=== PATIENT | male | born 1965 | race Caucasian/White ===

== ENCOUNTER 2023-05-27 14:45 | Outpatient (AMB) | payer BC, SELFPAY ==
[2023-05-27 14:46] VITALS: BP 130/90; PULSE 87; O2SAT 97; BMI 27.1
--- NOTE | 2023-05-27 14:46 | A.OFFPC_ITS ---
Vital Signs 05/27/23 14:46 05/27/23 15:08 Height 5 ft 11 in Weight 194 lb BMI 27.1 BP 130/90 H 130/82 Blood Pressure Location Lt brachial Lt brachial Position Sitting Sitting Pulse 87 Pulse Source Pulse Oximeter Pulse Oximetry (%) 97 Oxygen Delivery Method Room Air Intake Visit Reasons: Annual PE Intake Note: Patient is here today for a physical. Patient Financial Advocate Required: No Allergies No Known Allergies Allergy (Verified 05/27/23 14:56) Medication List - Last Reconciled 05/27/23 by ISA Rivera atorvastatin 20 mg PO DAILY sildenafil (Viagra) 100 mg PO DAILY PRN Tobacco use date assessed: 05/27/23 Dental Screening Dental Screen Date: 05/27/23 Did you have a dental visit in the last 12 months?: Yes Did you have a dental problem in the last 6 months where you did not have access to dental care?: No Was dental information given to patient?: Patient has dentist HPI Annual PE HPI Details Patient is a 57-year-old male who presents today for physical exam. Patient of Dr. Long. Medical history significant for hypercholesterolemia, impaired glucose tolerance, erectile dysfunction-reports Viagra is not helping him as it used in the past. Also reports intermittent forgetfulness for the past 1 year, reports forgetting random things, reports sister had dementia and at age 57. Reports intermittent balance slightly off as well. Declined tetanus vaccine. Reports normal colonoscopy 2018 at [facility]. Reports he does not take atorvastatin anymore, will check lipid panel. Will call for eye exam. Due for blood work. [facility] Medical History Erectile dysfunction Impaired glucose tolerance Hypercholesterolemia Family History Mother Dementia Father Skin cancer Sister Skin cancer Social History Housing: House Alcohol intake: current Alcohol intake frequency: holidays/special occasions only Patient Tobacco Use Status: Never used Tobacco service: No Current occupational status: employed Cognitive needs: No Hearing needs: No Vision needs: No Questionnaire PHQ-9 Over the last 2 weeks, how often have you been bothered by any of the following problems? 1. Little interest or pleasure in doing things: not at all 2. Feeling down, depressed, or hopeless: not at all 3. Trouble falling or staying asleep, or sleeping too much: not at all 4. Feeling tired or having little energy: not at all 5. Poor appetite or overeating: not at all 6. Feeling bad about yourself - or that you are a failure or have let yourself or your family down: not at all 7. Trouble concentrating on things, such as reading the newspaper or watching television: not at all 8. Moving or speaking so slowly that other people could have noticed. Or the opposite - being so fidgety or restless that you have been moving around a lot more than usual: not at all 9. Thoughts that you would be better off or of hurting yourself in some way: not at all Total score: 0 Depression Screening Interpretation: Negative Depression Screening Done: Yes 49992 - PHQ-9 Billing: Yes Source: Developed by Drs. Gary Gonzalez, Liudmila Harris, Bay Sanderson and colleagues, with an educational gael from [employer]. Thrive Questionnaire Date Thrive assessed: 05/27/23 I am a: Patient What is your living situation today?: I have a steady place to live Within the past 12 months, did the food you bought not last and you didn't have the money to get more?: Never true Within the past 12 months, did you worry whether your food would run out before you got money to buy more?: Never true Do you have trouble paying for medicines?: No Do you have trouble getting transportation to medical appointments?: No Do you have trouble paying your heating and electricity bill?: No Do you have trouble taking care of your child, family member or friend?: No Do you have trouble with day-to-day activities such as bathing, preparing meals, shopping, managing finances, etc.?: No Are you currently unemployed and looking for a job?: No Are you interested in more education?: No Currently or been in a relationship where the following occur: no concerns reported AUDIT C Alcohol Use Questionnaire (AUDIT-C) 1. How often do you have a drink containing alcohol?: Never 3. How often do you have six or more drinks on one occasion?: Never Total Score: 0 Score Reviewed/Action Taken: No ESTEFANY-7 AMB Questionnaire ESTEFANY-7 Date ESTEFANY - 7 assessed: 05/27/23 Feeling nervous, anxious, or on edge: 0 = Not at all Not being able to stop or control worryin = Not at all Worrying too much about different things: 0 = Not at all Trouble relaxin = Not at all Being so restless that it is hard to sit still: 0 = Not at all Becoming easily annoyed or irritable: 0 = Not at all Feeling afraid as if something awful might happen: 0 = Not at all Total ESTEFANY-7 score (0-4 normal; 5-9 mild; 10-14 moderate; 15-21 severe): 0 Source: Developed by Drs. Gary Gonzalez, Liudmila Harris, Bay Sanderson and colleagues, with an educational gael from [employer]. ESTEFANY-7 Assessment Billing ESTEFANY-7 Assessment Tool: ESTEFANY-7 Assessment 45701 Review of Systems Const Reports as per HPI, Denies body aches, Denies chills, Denies fever(s) and Denies headache(s) Eyes Denies change in vision ENT Denies dizziness, Denies otalgia, Denies headache(s), Denies nasal discharge, Denies sinus pain and Denies sore throat Card Denies chest pain, Denies edema, Denies lightheadedness and Denies dyspnea Resp Denies cough, Denies dyspnea and Denies wheezing GI Denies abdominal pain, Denies constipation, Denies diarrhea, Denies nausea and Denies vomiting Reports as per HPI and Denies dysuria Musc Denies myalgias Skin/Breast Denies rash Neuro Denies dizziness and Denies headache(s) Aller/Immun Denies wheezing Physical exam (Primary Care) Vital Signs: Last Vital Signs BP 130/90 H 05/27/23 14:46 Oxygen Delivery Method Room Air 05/27/23 14:46 BMI result Body Mass Index 27.1 Tobacco/Smoking Status: Tobacco use Status Tobacco use date assessed 05/27/23 05/27/23 14:54 Patient Tobacco Use Status Never used Tobacco 05/27/23 14:54 PHQ-9: PHQ-9 Score PHQ-9: Total score 0 05/27/23 14:58 Depression Screening Interpretation: Negative Thrive Assessment: Date of Thrive Assessment Date Thrive assessed 05/27/23 05/27/23 14:54 Currently or been in a relationship where the following occur: no concerns reported Const General: cooperative and no acute distress Orientation/consciousness: patient oriented x3 HENMT Head: Yes normocephalic and Yes atraumatic Ears: TM's normal bilaterally Face and sinus: Yes sinuses nontender Mouth: oropharynx normal and moist mucous membranes Throat: Yes posterior oropharynx normal Eyes General: appearance normal, both eyes and all related structures Pupils: Equal, round and reactive pupils present EOM: EOMs intact bilaterally Neck Neck: Yes normal visual inspection, Yes full ROM and Yes no lymphadenopathy Thyroid: Thyroid normal Resp Effort & Inspection: normal respiratory effort and able to speak in complete sentences Auscultation: clear to auscultation bilaterally, no crackles, no rales, no rhonchi and no wheezes Cardio Rate: regular rate Rhythm: regular rhythm Heart sounds: S1 normal heart sound present, S2 normal heart sound present and no murmurs GI Palpation (GI): Soft to palpation, not firm, nontender, no guarding, not rigid and no hepatosplenomegaly Auscultation: normal bowel sounds General: No CVA tenderness Back/Spine/Pelvis Back: No CVA tenderness Skin General skin exam: no rashes or lesions noted Neuro General: patient oriented x3 Cranial nerves: Yes Equal, round and reactive pupils present Gait exam (Neuro): Normal gait present Extrem General: Yes full ROM and No edema Assessment and Plan Assessment & Plan (1) Forgetfulness: Code(s): R68.89 - Other general symptoms and signs Plan: Blood work ordered Neurology referral for an evaluation and treatment (2) Screening for prostate cancer: Code(s): Z12.5 - Encounter for screening for malignant neoplasm of prostate (3) Adult general medical exam: Code(s): Z00.00 - Encounter for general adult medical examination without abnormal findings Plan: Repeat in 1 year (4) Erectile dysfunction: Code(s): N52.9 - Male erectile dysfunction, unspecified Plan: Continue Viagra daily p.r.n. Urology referral for an evaluation and treatment (5) Impaired glucose tolerance: Code(s): R73.02 - Impaired glucose tolerance (oral) Plan: A1c ordered (6) Hypercholesterolemia: Code(s): E78.00 - Pure hypercholesterolemia, unspecified Plan: Lipid panel ordered Low-cholesterol diet Orders: Orders TSH reflex Free T4 Today Z00.00 - Encounter for general adult medical examination without abnormal findings Vitamin B12 and Folate Today Z00.00 - Encounter for general adult medical examination without abnormal findings Lipid Panel Today E78.00 - Pure hypercholesterolemia, unspecified Comprehensive [place]. Panel Fast Today Z00.00 - Encounter for general adult medical examination without abnormal findings Complete Blood Count Auto Diff Today Z00.00 - Encounter for general adult medical examination without abnormal findings Vitamin D 25-OH Total Today Z00.00 - Encounter for general adult medical examination without abnormal findings Hemoglobin A1c Today R73.02 - Impaired glucose tolerance (oral) Prostate Specific Antigen Today Z12.5 - Encounter for screening for malignant neoplasm of prostate Referrals Urology Referral N52.9 - Male erectile dysfunction, unspecified Neurology Referral R68.89 - Other general symptoms and signs Coding Level of Care Code Est Pt Prev Care 40-64y([id number]) Diagnoses Forgetfulness R68.89 Screening for prostate cancer Z12.5 Adult general medical exam Z00.00 Erectile dysfunction N52.9 Impaired glucose tolerance R73.02 Hypercholesterolemia E78.00 Additional Codes ESTEFANY-7 Assessment Billing - ESTEFANY-7 Assessment Tool: ESTEFANY-7 Assessment 47975 ([id number])
[2023-05-27 15:08] VITALS: BP 130/82
== END 2023-05-27 15:48 | disposition home or self-care (01) ==
PROVIDERS: PCP Internal Medicine; Visit Provider Internal Medicine
DX: R68.89 Other general symptoms and signs (principal); Z12.5 Encounter for screening for malignant neoplasm of prostate; Z00.00 Encounter for general adult medical examination without abnormal findings; N52.9 Male erectile dysfunction, unspecified; R73.02 Impaired glucose tolerance (oral); E78.00 Pure hypercholesterolemia, unspecified
CPT/HCPCS: 99396

== ENCOUNTER 2023-06-29 10:51 | Outpatient (REF) | payer BC, SELFPAY ==
[2023-06-29 11:16] LABS: MANUAL DIFF FLAG NO
[2023-06-29 11:46] LABS: Estimated Average Glucose 105 mg/dL; Hemoglobin A1c % 5.3 % (<6.0)
[2023-06-29 12:03] LABS: Basophils Absolute Auto 0.1 X10*3/uL (0.0-0.2); Basophils Percent Auto 1.2 % (0-2); Eosinophils Absolute Auto 0.1 X10*3/uL (0.0-0.4); Eosinophils Percent Auto 1.9 % (0-4); Hematocrit 45.8 % (42.0-52.0); Hemoglobin 15.3 g/dl (14.0-18.0); Imm Gran Abs Auto 0.02 X10*3/uL (0.00-0.03); Imm Gran Pct Auto 0.5 % (0.0-0.4); Lymphocytes Percent Auto 24.3 % (20-40); Mean Corpuscular HGB Conc 33.4 g/dl (31.0-36.0); Mean Corpuscular Hemoglobin 29.9 pg (27.0-33.0); Mean Corpuscular Volume 89.5 fL (80.0-98.0); Mean Platelet Volume 9.8 fL (9.4-12.4); Monocytes Absolute Auto 0.4 X10*3/uL (0.1-1.2); Monocytes Percent Auto 8.8 % (2-11); Neutrophils Absolute Auto 2.7 x10*3/uL (2.0-8.3); Neutrophils Percent Auto 63.3 % (45-73); Platelet Count 144 X10*3/uL (160-400); Red Blood Count 5.12 X10*6/uL (4.60-5.80); Red Cell Distribution Width 12.6 % (11.0-16.0); White Blood Count 4.2 X10*3/uL (4.8-10.8)
[2023-06-29 12:12] LABS: Alanine Aminotransferase 28 U/L (0-40); Albumin Level 4.2 g/dL (3.5-5.0); Alkaline Phosphatase 74 U/L (39-117); Anion Gap 10 (12-20); Aspartate Amino Transferase 26 U/L (5-37); Bilirubin Total 0.5 mg/dL (0.0-1.0); Blood Urea Nitrogen 9 mg/dL (9-16); Calcium 9.9 mg/dL (8.4-10.2); Carbon Dioxide 31 mmol/L (22-29); Chloride 103 mmol/L (96-108); Cholesterol 175 mg/dL (<200); Estimated Glomerular Filt Rate > 60; Glucose Fasting 101 mg/dL (60-99); HDL Cholesterol 35 mg/dL (>40); LDL Cholesterol Calculated 102 mg/dL (<100); Potassium 5.1 mmol/L (3.3-5.1); Sodium 139 mmol/L (135-145); Total Protein 6.7 g/dL (6.5-8.0); Triglycerides 190 mg/dL (<150)
[2023-06-29 12:28] LABS: Vitamin D 25-OH Total 31.6 ng/mL (>30)
[2023-06-29 12:31] LABS: Folate 9.8 ng/mL (> or = 4.0); Prostate Specific Antigen 0.56 ng/mL (<0.05-4.0); Vitamin B12 745 pg/mL (200-900)
== END 2023-06-29 10:52 | disposition home or self-care (01) ==
LOC: HO.LAB 10:51
PROVIDERS: PCP Internal Medicine; Visit Provider Nurse Practitioner Family
DX: Z00.00 Encounter for general adult medical examination without abnormal findings (principal); Z12.5 Encounter for screening for malignant neoplasm of prostate; E78.00 Pure hypercholesterolemia, unspecified; R73.02 Impaired glucose tolerance (oral)
CPT/HCPCS: 36415; 80053; 80061; 82306; 82607; 82746; 83036; 84153; 84443; 85025

== ENCOUNTER 2023-09-30 14:25 | Outpatient (AMB) | payer BC, SELFPAY ==
--- NOTE | 2023-09-30 14:54 | MHC.OFFVIS ---
Intake Vital Signs 09/30/23 14:57 Height 5 ft 11 in Weight 194 lb BMI 27.1 BP 144/74 H Blood Pressure Location Rt brachial Position Sitting Respiration 16 Pulse 78 Pulse Source Pulse Oximeter Pulse Oximetry (%) 98 Oxygen Delivery Method Room Air Intake Visit Reasons: INP-Other general symptoms and signs-CONF Intake Note: Pt presents to the office for new pt evaluation for forgetfulness. Pt reports this has been getting worse over the last 4-5 months. Decision Support Manager Required: No Allergies No Known Allergies Allergy (Verified 09/30/23 14:56) Medication List - Last Reconciled 09/30/23 by Shaista Leal MD atorvastatin 20 mg PO DAILY sildenafil (Viagra) 100 mg PO DAILY PRN HPI HPI Comments History of Present Illness Details 58y/o right handed male comes for evaluation of memory issues and balance issues.His sister had Frontal Lobe Dementia and at age 54 and he is concerned .she had progressive aphasia and gait balance. He has 2 older sisters 65 and 62 and they are doing good.His mother dies at age 95 and had dementia. 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 he reports arousals with anxiety, snoring and excessive daytime fatigue No h/o head injury. He has mild anxiety and depression. Sometimes while standing he feels off balance . No falls PFSH Medical History (Updated 09/30/23 @ 15:30 by Shaista Leal MD) Hypersomnia Snoring Anxiety Family history of first degree relative with dementia Erectile dysfunction Impaired glucose tolerance Hypercholesterolemia Family History (Updated 09/30/23 @ 15:18 by Shaista Leal MD) Mother Dementia Father Skin cancer Sister Skin cancer Sister Frontotemporal dementia Social History Housing: House Alcohol intake: current Alcohol intake frequency: holidays/special occasions only Patient Tobacco Use Status: Never used Tobacco service: No Current occupational status: employed Cognitive needs: No Hearing needs: No Vision needs: No Physical Exam Vital Signs: Last Vital Signs Pulse 78 09/30/23 14:57 Resp 16 09/30/23 14:57 BP 144/74 H 09/30/23 14:57 Pulse Ox 98 09/30/23 14:57 Oxygen Delivery Method Room Air 09/30/23 14:57 BMI result Body Mass Index 27.1 Const General: cooperative, healthy appearing and comfortable Nutritional Appearance: average body habitus and well nourished Orientation/consciousness: patient oriented x3 Eyes Pupils: Equal, round and reactive pupils present Neuro General: patient oriented x3, gait normal, tone normal, moves all extremities and no focal motor deficits Cranial nerves: Yes Facial sensation intact/muscles of mastication intact, Yes Equal, round and reactive pupils present, Yes Bilaterally intact EOM present, Yes Nystagmus not present, Yes Normal facial strength present, Yes Midline tongue present and Yes Symmetric palate elevation present Cognition (Neuro): normal cognition Gait exam (Neuro): Normal gait present Motor exam (neuro): 5/5 motor strength present throughout and Normal motor muscle tone present throughout Deep tendon reflexes (DTR's): Right triceps reflex intensity grade: 2+, Left triceps reflex intensity grade: 2+, Rt Biceps (C5, C6): 2+, Left biceps reflex intensity grade: 2+, Right brachioradialis reflex intensity grade: 2+, Left brachioradialis reflex intensity grade: 2+, Right patellar reflex intensity grade: 2+ and Left patellar reflex intensity grade: 2+ Coordination: [id number] test normal Psych Affect: Anxious affect present Orientation What is the (year) (season) (date) (day) (month)?: year, season, date, day and month Where are we (state) (county) (town or city) (hospital) (floor)?: state, county, town or city, hospital/clinic and floor Registration Name of 3 unrelated objects clearly and slowly, then ask patient to repeat all 3 of them. (1st repeat determines score. Make sure they can repeat all three): object 1, object 2 and object 3 Attention & Calculation (CHOOSE ONE) Ask pt to begin with 100 & count backward by 7. Stop after 5 repeats. If pt cannot ask them to spell the word WORLD backward.: 93, 86, 79, 72 and 65 Recall Ask patient to repeat the 3 items from question #3.: object 1 and object 3 Language Show patient a wristwatch & ask what it is. Repeat for pencil.: watch and pencil Ask the patient to repeat the phrase 'No ifs, ands, or buts' after you.: correct Ask the patient to 'take a piece of paper with their right hand' 'fold paper in half' 'place paper on floor': take paper in right hand, fold paper in half and place paper on floor Print the sentence 'CLOSE YOUR EYES' on a piece. If patient actually closes eyes then score.: followed written direction Give patient a blank piece of paper & ask to write a sentence. Score if it contains a noun & verb.: sentence contains subject and verb Ask patient to copy figure of intersecting pentagons exactly. Score if all 10 angles & 2 intersects are included.: all 10 angles present & 2 are intersected Score Score: 29 Assessment & Plan Assessment & Plan (1) Forgetfulness: Code(s): R68.89 - Other general symptoms and signs (2) Family history of first degree relative with dementia: Code(s): Z81.8 - Family history of other mental and behavioral disorders (3) Anxiety: Code(s): F41.9 - Anxiety disorder, unspecified (4) Snoring: Code(s): R06.83 - Snoring (5) Hypersomnia: Code(s): G47.10 - Hypersomnia, unspecified Plan MRI brain Sleep study to r/o sleep apnea Neuropsych evaluation Labs- CBC CMP Vit B 12 ESR TSH will consider SSRI for anxiety and genetic testing for FTD Orders: Orders MR brain wo con w neuroquant Today R68.89 - Other general symptoms and signs, Z81.8 - Family history of other mental and behavioral disorders RT home sleep study Today G47.10 - Hypersomnia, unspecified, R06.83 - Snoring Referrals Neuropsychiatry Referral F41.9 - Anxiety disorder, unspecified, R68.89 - Other general symptoms and signs, Z81.8 - Family history of other mental and behavioral disorders Coding Level of Care Code New Pt Level 4 (38794) Diagnoses Forgetfulness R68.89 Family history of first degree relative with dementia Z81.8 Anxiety F41.9 Snoring R06.83 Hypersomnia G47.10
[2023-09-30 14:57] VITALS: BP 144/74; PULSE 78; RESP 16; O2SAT 98; BMI 27.1
== END 2023-09-30 15:54 | disposition home or self-care (01) ==
PROVIDERS: PCP Internal Medicine; Visit Provider Psychiatry & Neurology Neurology
DX: R68.89 Other general symptoms and signs (principal); Z81.8 Family history of other mental and behavioral disorders; F41.9 Anxiety disorder, unspecified; R06.83 Snoring; G47.10 Hypersomnia, unspecified
CPT/HCPCS: 99204

== ENCOUNTER → 2023-09-30 14:25 | Outpatient (BNVA) | payer BC, SELFPAY | PROVIDERS: PCP Internal Medicine; Visit Provider Psychiatry & Neurology Neurology ==

== ENCOUNTER → 2023-11-16 14:43 | Outpatient (REF) | payer BC, SELFPAY | LOC: HO.SL 14:43 | PROVIDERS: PCP Internal Medicine; Visit Provider Psychiatry & Neurology Neurology | DX: G47.33 Obstructive sleep apnea (adult) (pediatric) (principal); G47.10 Hypersomnia, unspecified; R06.83 Snoring | CPT/HCPCS: 95806 ==

== ENCOUNTER → 2023-11-16 14:56 | Outpatient (BNV) | payer BC, SELFPAY | PROVIDERS: PCP Internal Medicine; Visit Provider Internal Medicine | DX: G47.33 Obstructive sleep apnea (adult) (pediatric) (principal) | CPT/HCPCS: 95806 ==

== ENCOUNTER 2024-05-31 15:48 | Outpatient (AMB) | payer BC, SELFPAY ==
[2024-05-31 16:19] VITALS: BP 122/62; PULSE 71; O2SAT 98; BMI 25.5
--- NOTE | 2024-05-31 16:19 | A.OFFPC_ITS ---
Vital Signs 05/31/24 16:19 Height 5 ft 11 in Weight 183 lb BMI 25.5 BP 122/62 Blood Pressure Location Lt brachial Position Sitting Pulse 71 Pulse Source Pulse Oximeter Pulse Oximetry (%) 98 Oxygen Delivery Method Room Air Intake Visit Reasons: Annual Exam Allergies No Known Allergies Allergy (Verified 05/31/24 16:19) Medication List - Last Reconciled 05/31/24 by Rodney Long MD sildenafil 100 mg PO DAILY PRN Tobacco use date assessed: 05/31/24 Dental Screening Dental Screen Date: 05/31/24 Did you have a dental visit in the last 12 months?: Yes Did you have a dental problem in the last 6 months where you did not have access to dental care?: No Was dental information given to patient?: Patient has dentist HPI Annual Exam HPI Details The patient is a 58-year-old male presenting with erectile dysfunction. The patient previously considered injections but decided against them, opting instead to continue with his current management using Viagra 100 mg. Reports urinating frequently during the night, approximately three to four times, believes it may relate to prostate issues. The patient has a history of mild sleep apnea with six episodes of apnea per night recorded in a past sleep study, and a recommendation for CPAP was not pursued. The patient also reports significant issues with hypercholesterolemia, which he managed previously with medication but stopped over a year ago due to changes in insurance coverage. His lab results indicate stable leukopenia, thrombocytopenia, and elevated triglycerides with concerns about blood glucose levels bordering pre-diabetes. The patient is not currently on any medications for these conditions but maintains awareness of dietary impacts on glucose and cholesterol. - Exercise: Encouraged to maintain at le ast 7,000 steps daily and consider increasing cardio activity like running. - Diet: Advised on reducing intake of amaya gars and carbohydrates to manage triglycerides and borderline glucose levels. - Alcohol: Informed about recent guideli james reducing recommended alcoholic beverage intake to two drinks to mitigate cardiovascular risks. - Smoking: No current use; discussion re inforced avoidance. - Vaccinations: Discussed the COVID-19 v accine and tetanus booster, noting patient?s hesitancy. - Sleep: Advised to try sleeping on the side for mild sleep apnea management. - Exercises regularly, walking approxima tely 10,000 steps daily. - Drinks alcohol socially, about three t o four beers monthly. - Formerly managed cholesterol with pres cribed medication. - No tobacco or illicit drug use. - Constitutional: Denies fever, nausea, vomiting. - Neurological: Denies dizziness, syncop e. - Cardiovascular: Denies chest pain, hea rtburn. - Respiratory: Denies shortness of breat h. - Gastrointestinal: Reports normal bowel movements, denies dysphagia. - Genitourinary: Reports nocturia up to four times per night. - Musculoskeletal: No complaints of pain with movement. - Integumentary: Denies rashes or other skin issues. - Hematological: Noted low white blood c ell count and thrombocytopenia. - Labs: Hemoglobin A1c normal, elevated triglycerides at 190, stable leukopenia at 4.2, and thrombocytopenia at 144. - Imaging: MRI of brain previously negat yadira. [facility] Medical History (Updated 05/31/24 @ 17:42 by Rodney Long MD) Hypersomnia Screening for prostate cancer Snoring Anxiety Family history of first degree relative with dementia Erectile dysfunction Impaired glucose tolerance Hypercholesterolemia Family History (Updated 05/31/24 @ 16:20 by Vivian Johnson [facility]) Mother Dementia Father Skin cancer Sister Skin cancer Sister Frontotemporal dementia Social History (Updated 05/31/24 @ 17:28 by Rodney Long MD) Housing: House Alcohol intake: current Alcohol intake frequency: holidays/special occasions only Comment: once a month 3-4 beers Patient Tobacco Use Status: Never used Tobacco Tobacco use type: Cigarette e-Cigarette/Vaping Use: Never Used Second Hand Smoke Exposure: No service: No Current occupational status: employed Cognitive needs: No Hearing needs: No Vision needs: Yes Questionnaire PHQ-9 Over the last 2 weeks, how often have you been bothered by any of the following problems? 1. Little interest or pleasure in doing things: not at all 2. Feeling down, depressed, or hopeless: not at all 3. Trouble falling or staying asleep, or sleeping too much: not at all 4. Feeling tired or having little energy: not at all 5. Poor appetite or overeating: not at all 6. Feeling bad about yourself - or that you are a failure or have let yourself or your family down: not at all 7. Trouble concentrating on things, such as reading the newspaper or watching television: not at all 8. Moving or speaking so slowly that other people could have noticed. Or the opposite - being so fidgety or restless that you have been moving around a lot more than usual: not at all 9. Thoughts that you would be better off or of hurting yourself in some way: not at all Total score: 0 Source: Developed by Drs. Gary Gonzalez, Liudmila Harris, Bay Sanderson and colleagues, with an educational gael from [employer]. Thrive Questionnaire Date Thrive assessed: 05/31/24 I am a: Patient What is your living situation today?: I have a steady place to live Within the past 12 months, did the food you bought not last and you didn't have the money to get more?: Never true Within the past 12 months, did you worry whether your food would run out before you got money to buy more?: Never true Do you have trouble paying for medicines?: No Do you have trouble getting transportation to medical appointments?: No Do you have trouble paying your heating and electricity bill?: No Do you have trouble taking care of your child, family member or friend?: No Do you have trouble with day-to-day activities such as bathing, preparing meals, shopping, managing finances, etc.?: No Are you currently unemployed and looking for a job?: No Are you interested in more education?: I choose not to answer this question Please select the resources that you would like help with: None Currently or been in a relationship where the following occur: No concerns reported THRIVE Score: 0 AUDIT C Alcohol Use Questionnaire (AUDIT-C) 1. How often do you have a drink containing alcohol?: Monthly or less 2. How many drinks containing alcohol do you have on a typical day when you are drinking?: 1 or 2 3. How often do you have six or more drinks on one occasion?: Never Total Score: 1 ESTEFANY-7 AMB Questionnaire ESTEFANY-7 Date ESTEFANY - 7 assessed: 05/31/24 Feeling nervous, anxious, or on edge: 0 = Not at all Not being able to stop or control worryin = Not at all Worrying too much about different things: 0 = Not at all Trouble relaxin = Not at all Being so restless that it is hard to sit still: 0 = Not at all Becoming easily annoyed or irritable: 0 = Not at all Feeling afraid as if something awful might happen: 0 = Not at all Total ESTEFANY-7 score (0-4 normal; 5-9 mild; 10-14 moderate; 15-21 severe): 0 Source: Developed by Drs. Gary Gonzalez, Liudmila Harris, Bay Sanderson and colleagues, with an educational gael from [employer]. Review of Systems Const Denies poor appetite and Denies weakness Eyes Denies no additional complaints ENT Reports Normal hearing present, Denies dizziness, Denies nasal congestion, Denies tinnitus and Denies sore throat Card Denies chest pain, Denies syncope, Denies rapid heart rate and Denies dyspnea Resp Denies cough and Denies dyspnea GI Denies change in stool character, Reports constipation, Denies diarrhea, Denies nausea and Denies vomiting Denies dysuria and Denies urinary frequency Neuro Reports Normal hearing present, Denies confusion, Denies dizziness, Denies syncope and Denies weakness Psych Denies confusion Physical exam (Primary Care) Vital Signs: Last Vital Signs Pulse 71 05/31/24 16:19 BP 122/62 05/31/24 16:19 Pulse Ox 98 05/31/24 16:19 Oxygen Delivery Method Room Air 05/31/24 16:19 BMI result Body Mass Index 25.5 Tobacco/Smoking Status: Tobacco use Status Tobacco use date assessed 05/31/24 05/31/24 16:20 Patient Tobacco Use Status Never used Tobacco 05/31/24 16:20 Tobacco use type Cigarette 05/31/24 16:20 e-Cigarette/Vaping Use Never Used 05/31/24 16:20 PHQ-9: PHQ-9 Score PHQ-9: Total score 0 05/31/24 16:47 Thrive Assessment: Date of Thrive Assessment Date Thrive assessed 05/31/24 05/31/24 16:20 Currently or been in a relationship where the following occur: No concerns reported Const General: alert and awake; No confusion Orientation/consciousness: No confusion HENMT Other: impacted cerumen Head: Yes normocephalic Ears: external ears normal Face and sinus: Yes normal facial exam Mouth: moist mucous membranes Throat: Yes tonsils normal Eyes Conjunctivae: conjunctivae normal Pupils: Equal, round and reactive pupils present and Pupil accommodation reflex normal Direct Ophthalmoscopy: normal light reflex Neck Neck: No lymphadenopathy Thyroid: Thyroid normal Chest Chest palpation & inspection: normal inspection of the chest Resp Effort & Inspection: normal respiratory effort and no audible wheezes Auscultation: clear to auscultation bilaterally, no crackles, no wheezes and lung sounds not diminished Cardio Rate: regular rate Rhythm: regular rhythm Peripheral pulses: radial pulses present and dorsalis pedis present GI Other: guaiac negative , n prostate Palpation (GI): no masses Auscultation: normal bowel sounds and normoactive bowel sounds Male General Exam: Yes normal external exam Skin General skin exam: no rashes or lesions noted Rashes: no rashes Neuro General: deep tendon reflexes 2+ bilaterally and No confusion Cranial nerves: Yes Equal, round and reactive pupils present, Yes Midline tongue present, Yes Normal hearing present and Yes Ability to bilaterally elevate shoulders present Cognition (Neuro): normal cognition Gait exam (Neuro): Normal gait present Motor exam (neuro): 5/5 motor strength present throughout Deep tendon reflexes (DTR's): Right brachioradialis reflex intensity grade: 2+, Left brachioradialis reflex intensity grade: 2+, Right patellar reflex intensity grade: 2+ and Left patellar reflex intensity grade: 2+ Extrem General: No edema Coding Level of Care Code Est Pt Prev Care 40-64y(89250) Diagnoses Adult general medical exam Z00.00 Impaired glucose tolerance R73.02 Hypercholesterolemia E78.00 Erectile dysfunction N52.9 Mild obstructive sleep apnea G47.33 Frequency of micturition R35.0 Impacted cerumen of both ears H61.23 Assessment & Plan Assessment & Plan (1) Adult general medical exam: Code(s): Z00.00 - Encounter for general adult medical examination without abnormal findings Category: Medical (2) Impaired glucose tolerance: Code(s): R73.02 - Impaired glucose tolerance (oral) Category: Medical (3) Hypercholesterolemia: Code(s): E78.00 - Pure hypercholesterolemia, unspecified Category: Medical (4) Erectile dysfunction: Code(s): N52.9 - Male erectile dysfunction, unspecified Category: Medical (5) Mild obstructive sleep apnea: Code(s): G47.33 - Obstructive sleep apnea (adult) (pediatric) Category: Medical (6) Frequency of micturition: Code(s): R35.0 - Frequency of micturition Category: Medical (7) Impacted cerumen of both ears: Code(s): H61.23 - Impacted cerumen, bilateral Category: Medical Plan - Prescribed Sildenafil Viagra) for erectile dysfunction, instructed to continue with current dosing. - Requested urinalysis and bladder ultrasound to evaluate nocturia. - Advised blood test for updated fasting glucose and lipid panel. - Encouraged dietary modifications to manage triglycerides and pre-diabetes. - Recommended lifestyle modifications including increased activity and proper hydration management. - Discussed potential need for cholesterol management pending updated test results. - No CPAP initiated as apnea was mild; advised side-sleeping as a potential mitigation strategy. I discussed with the patient his current medications and addressed concerns regarding erectile dysfunction management, continuing with 100 mg Sildenafil. Regarding sleep apnea, I informed him of the mild severity and encouraged side- sleeping while deferring CPAP for now. We reviewed dietary needs to manage cholesterol and glucose levels. I advised a proactive approach with steps and exercise. We discussed the need for blood tests to reassess cholesterol and glucose levels, stressing the importance of controlling diet and monitoring labs to reduce cardiovascular and metabolic risks. Additionally, discussion about the potential for reinitiating cholesterol medication was detailed, contingent upon new lab results. - Continue taking Viagra 100 mg as prescribed. - Limit alcohol to no more than two drinks per occasion. - Maintain exercise of at least 7,000 steps daily. - Schedule and complete urinalysis and bladder ultrasound as directed. - Fast for eight hours before scheduled blood tests; drink only small amounts of water. - Reduce intake of sugars and carbohydrates. - Consider sleeping on your side for better apnea management. - Discuss diet and exercise modifications in the next visit for managing glucose and cholesterol levels. - Call to schedule an jet engine mechanic visit as needed; inquire about vaccination updates if desired. Orders: Orders UA CC w/rflx Micro + Cult Today R30.0 - Dysuria, R35.0 - Frequency of micturi tion US bladder Today R35.0 - Frequency of micturition Hemoglobin A1c Today R73.02 - Impaired glucose tolerance (oral) Comprehensive Met. Panel Today E78.00 - Pure hypercholesterolemia, unspecified Thyroid Stimulating Hormone Today E78.00 - Pure hypercholesterolemia, unspecified Free T4 (Free Thyroxine) Today E78.00 - Pure hypercholesterolemia, unspecified Lipid Panel Today E78.00 - Pure hypercholesterolemia, unspecified Complete Blood Count Auto Diff Today E78.00 - Pure hypercholesterolemia, unspecified Prostate Specific Antigen Scr Today E78.00 - Pure hypercholesterolemia, un specified Vitamin B12 and Folate Today E78.00 - Pure hypercholesterolemia, unspecified Medications: New sildenafil administer 30 minutes to 4 hours before activity 100 mg PO DAILY PRN 14 tabs 3RF sexual activity N52.9 - Male erectile dysfunction, unspecified
== END 2024-05-31 18:11 | disposition home or self-care (01) ==
PROVIDERS: PCP Internal Medicine; Visit Provider Internal Medicine
DX: Z00.00 Encounter for general adult medical examination without abnormal findings (principal); R73.02 Impaired glucose tolerance (oral); E78.00 Pure hypercholesterolemia, unspecified; N52.9 Male erectile dysfunction, unspecified; G47.33 Obstructive sleep apnea (adult) (pediatric); R35.0 Frequency of micturition; H61.23 Impacted cerumen, bilateral

== ENCOUNTER 2024-09-12 15:23 | Outpatient (AMB) | payer BC, SELFPAY ==
[2024-09-12 15:25] VITALS: BP 124/86; PULSE 85; TEMP 36.7; O2SAT 98; BMI 25.9
--- NOTE | 2024-09-12 15:25 | MHC.PC.OV ---
Vital Signs 09/12/24 15:25 09/12/24 16:08 Height 5 ft 11 in Weight 185 lb 8 oz BMI 25.9 BP 124/86 150/90 H Blood Pressure Location Lt brachial Lt radial Position Sitting Sitting Pulse 85 Pulse Source Pulse Oximeter Temp 98.0 F Temp Source Temporal Artery Scan Pulse Oximetry (%) 98 Oxygen Delivery Method Room Air Intake Visit Reasons: E.D. IGT, Cholesterol , frequency Allergies No Known Allergies Allergy (Verified 09/12/24 15:25) Medication List - Last Reconciled 09/12/24 by Rodney Long MD meclizine 25 mg PO BID PRN sildenafil 100 mg PO DAILY PRN Tobacco use date assessed: 09/12/24 Dental Screening Dental Screen Date: 09/12/24 Did you have a dental visit in the last 12 months?: Yes Did you have a dental problem in the last 6 months where you did not have access to dental care?: No Was dental information given to patient?: Patient has dentist [facility] Medical History Hypersomnia Screening for prostate cancer Snoring Anxiety Family history of first degree relative with dementia Erectile dysfunction Impaired glucose tolerance Hypercholesterolemia Family History Mother Dementia Father Skin cancer Sister Skin cancer Sister Frontotemporal dementia Social History Housing: House Alcohol intake: current Alcohol intake frequency: holidays/special occasions only Comment: once a month 3-4 beers Patient Tobacco Use Status: Never used Tobacco Tobacco use type: Cigarette e-Cigarette/Vaping Use: Never Used Second Hand Smoke Exposure: No service: No Current occupational status: employed Cognitive needs: No Hearing needs: No Vision needs: Yes Questionnaire PHQ-9 Over the last 2 weeks, how often have you been bothered by any of the following problems? 1. Little interest or pleasure in doing things: not at all 2. Feeling down, depressed, or hopeless: not at all 3. Trouble falling or staying asleep, or sleeping too much: not at all 4. Feeling tired or having little energy: not at all 5. Poor appetite or overeating: not at all 6. Feeling bad about yourself - or that you are a failure or have let yourself or your family down: not at all 7. Trouble concentrating on things, such as reading the newspaper or watching television: not at all 8. Moving or speaking so slowly that other people could have noticed. Or the opposite - being so fidgety or restless that you have been moving around a lot more than usual: not at all 9. Thoughts that you would be better off or of hurting yourself in some way: not at all Total score: 0 Depression Screening Interpretation: Negative Depression Screening Done: Yes 59885 - PHQ-9 Billing: Yes Source: Developed by Drs. Gary Gonzalez, Liudmila Harris, Bay Sanderson and colleagues, with an educational gael from [employer]. Thrive Questionnaire Date Thrive assessed: 09/12/24 I am a: Patient What is your living situation today?: I have a steady place to live Within the past 12 months, did the food you bought not last and you didn't have the money to get more?: Never true Within the past 12 months, did you worry whether your food would run out before you got money to buy more?: Never true Do you have trouble paying for medicines?: No Do you have trouble getting transportation to medical appointments?: No Do you have trouble paying your heating and electricity bill?: No Do you have trouble taking care of your child, family member or friend?: No Do you have trouble with day-to-day activities such as bathing, preparing meals, shopping, managing finances, etc.?: No Are you currently unemployed and looking for a job?: No Are you interested in more education?: I choose not to answer this question Please select the resources that you would like help with: None Currently or been in a relationship where the following occur: No concerns reported THRIVE Score: 0 AUDIT C Alcohol Use Questionnaire (AUDIT-C) 1. How often do you have a drink containing alcohol?: Monthly or less 2. How many drinks containing alcohol do you have on a typical day when you are drinking?: 1 or 2 3. How often do you have six or more drinks on one occasion?: Never Total Score: 1 ESTEFANY-7 AMB Questionnaire ESTEFANY-7 Date ESTEFANY - 7 assessed: 09/12/24 Feeling nervous, anxious, or on edge: 0 = Not at all Not being able to stop or control worryin = Not at all Worrying too much about different things: 0 = Not at all Trouble relaxin = Not at all Being so restless that it is hard to sit still: 0 = Not at all Becoming easily annoyed or irritable: 0 = Not at all Feeling afraid as if something awful might happen: 0 = Not at all Total ESTEFANY-7 score (0-4 normal; 5-9 mild; 10-14 moderate; 15-21 severe): 0 Source: Developed by Drs. Gary Gonzalez, Liudmila Harris, Bay Sanderson and colleagues, with an educational gael from [employer]. ESTEFANY-7 Assessment Billing ESTEFANY-7 Assessment Tool: ESTEFANY-7 Assessment 21743 Physical exam (Primary Care) Vital Signs: Last Vital Signs Temp 98.0 F 09/12/24 15:25 Pulse 85 09/12/24 15:25 BP 150/90 H 09/12/24 16:08 Pulse Ox 98 09/12/24 15:25 Oxygen Delivery Method Room Air 09/12/24 15:25 BMI result Body Mass Index 25.9 Tobacco/Smoking Status: Tobacco use Status Tobacco use date assessed 09/12/24 09/12/24 15:26 Patient Tobacco Use Status Never used Tobacco 09/12/24 15:26 Tobacco use type Cigarette 09/12/24 15:26 e-Cigarette/Vaping Use Never Used 09/12/24 15:26 PHQ-9: PHQ-9 Score PHQ-9: Total score 0 09/12/24 16:04 Depression Screening Interpretation: Negative Thrive Assessment: Date of Thrive Assessment Date Thrive assessed 09/12/24 09/12/24 15:26 Currently or been in a relationship where the following occur: No concerns reported Const General: alert; No acute distress HENMT Other: bilateral cerumen impaction Eyes Conjunctivae: conjunctivae normal Resp Auscultation: clear to auscultation bilaterally Cardio Rate: regular rate Rhythm: regular rhythm GI Inspection: Yes normal to inspection Extrem General: Yes normal to inspection and No edema Office Procedures Cerumen Removal From which ear canal was the cerumen removed: bilateral Removal: irrigation, otoscope w/curette, cerumen loop/spoon and other Notes: patient tolerated procedure well, no complications and ear canal clear [id number] Irrigation/Lavage Coding Level of Care Code Est Pt Level 4 (97358) Diagnoses Impaired glucose tolerance R73.02 Hypercholesterolemia E78.00 Erectile dysfunction N52.9 Benign paroxysmal vertigo, bilateral H81.13 Impacted cerumen of both ears H61.23 CPT Codes Office Procedure - CPT: 53572-Gyf Irrigation/Lavage ([id number]) Additional Codes ESTEFANY-7 Assessment Billing - ESTEFANY-7 Assessment Tool: ESTEFANY-7 Assessment 74552 ([id number]) PHQ-9 - 62366 - PHQ-9 Billing: Yes ([id number]) Assessment & Plan Assessment & Plan (1) Impaired glucose tolerance: Code(s): R73.02 - Impaired glucose tolerance (oral) Category: Medical Plan: Decrease the amount of carbohydrate intake, pasta, bread, rice and potatoes are all sugar and that is aside from all the sweet stuff, remember that fruits are good but they are Sweet also. (2) Hypercholesterolemia: Code(s): E78.00 - Pure hypercholesterolemia, unspecified Category: Medical Plan: Avoid fried foods, chicken skin, eggs, butter margarine, pastries and meat. Be it pork or beef they have a lot of cholesterol LDL goal of less than 130 and triglyceride of less than 150 (3) Erectile dysfunction: Code(s): N52.9 - Male erectile dysfunction, unspecified Category: Medical Plan: sildenafil prescribed (4) Benign paroxysmal vertigo, bilateral: Code(s): H81.13 - Benign paroxysmal vertigo, bilateral Category: Medical (5) Impacted cerumen of both ears: Code(s): H61.23 - Impacted cerumen, bilateral Category: Medical Plan: irrigation done TM intact bilateral Plan History of Present Illness The patient is a 59-year-old male presenting with dizziness primarily described as a whirling sensation especially upon positional change, persisting for one month. He denies syncope, shortness of breath, or chest pain. Noteworthy is his fluctuating blood pressure, noted at 160 mmHg but not consistently elevated. He attributes potential hypertension to a familial history. His history includes hypercholesterolemia with efforts to manage LDL and triglyceride levels, and impaired glucose tolerance with normal renal function. Past testing has noted mild thrombocytopenia and low white blood cell count. There has been no recent eye examination despite visual changes. 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 - Cardiovascular: Reports elevated blood pressure readings. - Respiratory: Denies shortness of breath or chest pain. - Gastrointestinal: Denies any issues with bowel movements. - Genitourinary: Denies issues with urination. - Ophthalmologic: Reports declining vision, uses reading glasses. - ENT: Reports dizziness likely associated with wax impaction as suspected by familial history. Physical Exam - Ears- Cerumen impaction noted; ear cleaning done during visit. Results - Labs: Blood work from June indicates mild thrombocytopenia, mild leukopenia, normal glucose levels with a mildly elevated blood count, normal renal function, high cholesterol, normal LDL. - Cholesterol: High Triglycerides; Normal LDL Plan I addressed dizziness linked potentially to benign positional vertigo with cerumen impaction cleaning and recommended medications. Physical therapy was recommended to assist with positional management. Monitoring of cholesterol and blood glucose is to continue with specified targets. To assess hypertension, I encouraged regular home blood pressure monitoring with instructions provided. Lifestyle modifications, including adequate hydration and reduced caffeine intake, were also emphasized. Follow-up blood work is planned under fasting conditions to reassess current health issues. Patient was informed and verbally consented to the use of an ambient scribe for clinic note documentation during this visit. Discussion Notes I discussed with the patient the likelihood of benign positional vertigo contributing to his dizziness and the role of ear cleaning and medication. Ear wax removal was performed during the visit. I recommended physical therapy to aid with vertigo and emphasized compliance with medication. Regular blood pressure monitoring at home was advised. We discussed the management of hypercholesterolemia, establishing target levels for LDL and triglycerides, and the importance of ongoing monitoring. Any potential side effects of prescribed medication were reviewed, particularly potential sedation. I outlined the importance of lifestyle changes including optimal hydration and reduced caffeine intake. Follow-up plans for fasting blood work were discussed, alongside the need for future routine health maintenance such as cholesterol checks and colonoscopy scheduling. Patient Instructions - Monitor blood pressure regularly at home under calm conditions. - Attend physical therapy sessions for dizziness management. - Follow prescribed medication regimen and be aware of potential sedation effects. - Maintain hydration and lessen caffeine intake as lifestyle changes. - Schedule follow-up blood work ensuring fasting conditions. - Continue to manage cholesterol with established goal levels and follow-up checks. - Contact the clinic for any worsened symptoms or concerns. - Schedule an eye examination and a future colonoscopy. Orders: Orders PT Evaluation and Treatment Today H81.13 - Benign paroxysmal vertigo, bilateral Medications: New meclizine 25 mg PO BID PRN 14 tabs 0RF dizziness H81.13 - Benign paroxysmal vertigo, bilateral
[2024-09-12 16:08] VITALS: BP 150/90
== END 2024-09-12 16:32 | disposition home or self-care (01) ==
LOC: HO.HMCH 15:23
PROVIDERS: PCP Internal Medicine; Visit Provider Internal Medicine
DX: R73.02 Impaired glucose tolerance (oral) (principal); E78.00 Pure hypercholesterolemia, unspecified; N52.9 Male erectile dysfunction, unspecified; H81.13 Benign paroxysmal vertigo, bilateral; H61.23 Impacted cerumen, bilateral

== ENCOUNTER → 2024-09-12 15:23 | Outpatient (BNVA) | payer BC, SELFPAY | PROVIDERS: PCP Internal Medicine; Visit Provider Internal Medicine | DX: R73.02 Impaired glucose tolerance (oral) (principal); E78.00 Pure hypercholesterolemia, unspecified; N52.9 Male erectile dysfunction, unspecified; H81.13 Benign paroxysmal vertigo, bilateral; H61.23 Impacted cerumen, bilateral | CPT/HCPCS: 69210; 96127 ==

== ENCOUNTER 2024-09-22 12:02 | Outpatient (REF) | payer BC, SELFPAY ==
[2024-09-22 12:24] LABS: MANUAL DIFF FLAG NO
[2024-09-22 12:44] LABS: Basophils Percent Auto 0.9 % (0-2); Eosinophils Percent Auto 0.9 % (0-4); Hematocrit 43.4 % (42.0-52.0); Hemoglobin 14.6 g/dl (14.0-18.0); Imm Gran Abs Auto 0.01 X10*3/uL (0.00-0.03); Imm Gran Pct Auto 0.2 % (0.0-0.4); Lymphocytes Absolute Auto 0.8 X10*3/uL (1.2-4.9); Lymphocytes Percent Auto 18.6 % (20-40); Mean Corpuscular HGB Conc 33.6 g/dl (31.0-36.0); Mean Corpuscular Hemoglobin 29.7 pg (27.0-33.0); Mean Corpuscular Volume 88.4 fL (80.0-98.0); Mean Platelet Volume 9.6 fL (9.4-12.4); Monocytes Absolute Auto 0.3 X10*3/uL (0.1-1.2); Monocytes Percent Auto 7.1 % (2-11); Neutrophils Absolute Auto 3.1 x10*3/uL (2.0-8.3); Neutrophils Percent Auto 72.3 % (45-73); Platelet Count 144 X10*3/uL (160-400); Red Blood Count 4.91 X10*6/uL (4.60-5.80); White Blood Count 4.2 X10*3/uL (4.8-10.8)
[2024-09-22 12:51] LABS: Appearance Urine Clear; Color Urine Yellow; Glucose Urine UA Negative (Negative); Leukocyte Esterase Urine Negative (Negative); Nitrite Urine Negative (Negative); PH 7.5 (5.0-9.0); Specific Gravity - Urine <= 1.005 (1.005-1.025); Urine Blood Negative (Negative); Urine Ketones Negative (Negative); Urine Protein Negative (Neg-Trace)
[2024-09-22 12:56] LABS: Estimated Average Glucose 111 mg/dL; Hemoglobin A1C 138.5621 umol/L; Hemoglobin A1c % 5.5 % (<6.0); Total Hemoglobin (HGBA1C) 3814.0647 umol/L
[2024-09-22 13:31] LABS: Alanine Aminotransferase 30 U/L (0-40); Albumin Level 4.5 g/dL (3.5-5.0); Alkaline Phosphatase 80 U/L (39-117); Anion Gap 12 (12-20); Aspartate Amino Transferase 31 U/L (5-37); Bilirubin Total 0.7 mg/dL (0.0-1.0); Blood Urea Nitrogen 10 mg/dL (9-16); Carbon Dioxide 31 mmol/L (22-29); Chloride 104 mmol/L (96-108); Cholesterol 174 mg/dL (<200); Estimated Glomerular Filt Rate > 60; Glucose Random 99 mg/dL (60-115); HDL Cholesterol 42 mg/dL (>40); LDL Cholesterol Calculated 108 mg/dL (<100); Potassium 4.9 mmol/L (3.3-5.1); Sodium 142 mmol/L (135-145); Total Protein 6.9 g/dL (6.5-8.0); Triglycerides 122 mg/dL (<150)
[2024-09-22 13:49] LABS: Free T4 (Free Thyroxine) 0.98 ng/dL (0.71-1.85); Thyroid Stimulating Hormone 1.85 uIU/mL (0.32-4.0)
[2024-09-22 13:55] LABS: Folate 13.4 ng/mL (> or = 4.0); Prostate Specific Antigen Scr 0.77 ng/mL (<0.05-4.0); Vitamin B12 966 pg/mL (200-900)
== END 2024-09-22 12:03 | disposition home or self-care (01) ==
LOC: HO.LAB 12:02
PROVIDERS: PCP Internal Medicine; Visit Provider Internal Medicine
DX: E78.00 Pure hypercholesterolemia, unspecified (principal); R73.02 Impaired glucose tolerance (oral); R30.0 Dysuria; R35.0 Frequency of micturition; Z12.5 Encounter for screening for malignant neoplasm of prostate
CPT/HCPCS: 36415; 80053; 80061; 81003; 82607; 82746; 83036; 84153; 84439; 84443; 85025

== ENCOUNTER 2024-11-21 15:22 | Outpatient (AMB) | payer BC, SELFPAY ==
[2024-11-21 15:27] VITALS: BP 104/76; PULSE 83; O2SAT 96; BMI 26.4
--- NOTE | 2024-11-21 15:27 | MHC.PC.OV ---
Vital Signs 11/21/24 15:27 Height 5 ft 11 in Weight 189 lb 2 oz BMI 26.4 BP 104/76 Blood Pressure Location Lt brachial Position Sitting Pulse 83 Pulse Source Pulse Oximeter Pulse Oximetry (%) 96 Oxygen Delivery Method Room Air Intake Visit Reasons: Unsteady Balance Walking Net Lead Architect Required: No Accompanied by: Self / Same As Patient Allergies No Known Allergies Allergy (Verified 11/21/24 15:28) Medication List - Last Reconciled 11/21/24 by Rodney Long MD meclizine 25 mg PO BID PRN sildenafil 100 mg PO DAILY PRN Tobacco use date assessed: 11/21/24 Dental Screening Dental Screen Date: 11/21/24 Did you have a dental visit in the last 12 months?: Yes Did you have a dental problem in the last 6 months where you did not have access to dental care?: No Was dental information given to patient?: Patient has dentist [facility] Medical History (Updated 11/21/24 @ 15:42 by Rodney Long MD) Hypotension Hypersomnia Screening for prostate cancer Snoring Anxiety Family history of first degree relative with dementia Erectile dysfunction Impaired glucose tolerance Hypercholesterolemia Family History Mother Dementia Father Skin cancer Sister Skin cancer Sister Frontotemporal dementia Social History Housing: House Alcohol intake: current Alcohol intake frequency: holidays/special occasions only Comment: once a month 3-4 beers Patient Tobacco Use Status: Never used Tobacco Tobacco use type: Cigarette e-Cigarette/Vaping Use: Never Used Second Hand Smoke Exposure: No service: No Current occupational status: employed Cognitive needs: No Hearing needs: No Vision needs: Yes Questionnaire PHQ-9 Over the last 2 weeks, how often have you been bothered by any of the following problems? 1. Little interest or pleasure in doing things: not at all 2. Feeling down, depressed, or hopeless: not at all 3. Trouble falling or staying asleep, or sleeping too much: not at all 4. Feeling tired or having little energy: not at all 5. Poor appetite or overeating: not at all 6. Feeling bad about yourself - or that you are a failure or have let yourself or your family down: not at all 7. Trouble concentrating on things, such as reading the newspaper or watching television: not at all 8. Moving or speaking so slowly that other people could have noticed. Or the opposite - being so fidgety or restless that you have been moving around a lot more than usual: not at all 9. Thoughts that you would be better off or of hurting yourself in some way: not at all Total score: 0 Source: Developed by Drs. Gary Gonzalez, Liudmila Harris, Bay Sanderson and colleagues, with an educational gael from [employer]. Thrive Questionnaire Date Thrive assessed: 11/21/24 I am a: Patient What is your living situation today?: I have a steady place to live Within the past 12 months, did the food you bought not last and you didn't have the money to get more?: I choose not to answer this question Within the past 12 months, did you worry whether your food would run out before you got money to buy more?: Never true Do you have trouble paying for medicines?: No Do you have trouble getting transportation to medical appointments?: No Do you have trouble paying your heating and electricity bill?: No Do you have trouble taking care of your child, family member or friend?: No Do you have trouble with day-to-day activities such as bathing, preparing meals, shopping, managing finances, etc.?: No Are you currently unemployed and looking for a job?: No Are you interested in more education?: I choose not to answer this question Please select the resources that you would like help with: None Currently or been in a relationship where the following occur: No concerns reported THRIVE Score: 0 AUDIT C Alcohol Use Questionnaire (AUDIT-C) 1. How often do you have a drink containing alcohol?: Monthly or less 2. How many drinks containing alcohol do you have on a typical day when you are drinking?: 1 or 2 3. How often do you have six or more drinks on one occasion?: Never Total Score: 1 ESTEFANY-7 AMB Questionnaire ESTEFANY-7 Date ESTEFANY - 7 assessed: 11/21/24 Feeling nervous, anxious, or on edge: 0 = Not at all Not being able to stop or control worryin = Not at all Worrying too much about different things: 0 = Not at all Trouble relaxin = Not at all Being so restless that it is hard to sit still: 0 = Not at all Becoming easily annoyed or irritable: 0 = Not at all Feeling afraid as if something awful might happen: 0 = Not at all Total ESTEFANY-7 score (0-4 normal; 5-9 mild; 10-14 moderate; 15-21 severe): 0 Source: Developed by Drs. Gary Gonzalez, Liudmila Harris, Bay Sanderson and colleagues, with an educational gael from [employer]. Physical exam (Primary Care) Vital Signs: Last Vital Signs Pulse 83 11/21/24 15:27 BP 104/76 11/21/24 15:27 Pulse Ox 96 11/21/24 15:27 Oxygen Delivery Method Room Air 11/21/24 15:27 BMI result Body Mass Index 26.4 Tobacco/Smoking Status: Tobacco use Status Tobacco use date assessed 11/21/24 11/21/24 15:33 Patient Tobacco Use Status Never used Tobacco 11/21/24 15:33 Tobacco use type Cigarette 11/21/24 15:33 e-Cigarette/Vaping Use Never Used 11/21/24 15:33 PHQ-9: PHQ-9 Score PHQ-9: Total score 0 11/21/24 16:55 Thrive Assessment: Date of Thrive Assessment Date Thrive assessed 11/21/24 11/21/24 15:33 Currently or been in a relationship where the following occur: No concerns reported Const General: alert; No acute distress Eyes Conjunctivae: conjunctivae normal Resp Auscultation: clear to auscultation bilaterally Cardio Rate: regular rate Rhythm: regular rhythm GI Inspection: Yes normal to inspection Extrem General: Yes normal to inspection and No edema Immunizations Boostrix Tdap 2.5 Lf unit-8 mcg-5 Lf/0.5 mL intramuscular syringe Performing Provider: Rodney Long MD [facility] [place] [facility] Administered by: MANUEL Mosqueda on 11/21/24 15:52 Dose Route Admin Location Dispensed Lot Number Expiration Date [facility] Rec[employer] 0.5 mL IM Left Deltoid 0.5 mL [id number] 02/11/27 [id number] [employer] VIS Given Date VIS Provided VIS Publication Date 11/21/24 Single Vaccine 21 Eligibility Eligibility Date Funding Source Not [facility] Eligible 11/21/24 Private Coding Level of Care Code Est Pt Level 3 (52311) Diagnoses Benign paroxysmal vertigo, bilateral H81.13 Assessment & Plan Assessment & Plan (1) Benign paroxysmal vertigo, bilateral: Code(s): H81.13 - Benign paroxysmal vertigo, bilateral Category: Medical Plan: keep well hydrated Plan History of Present Illness The patient is a 59-year-old male presenting with complaints of dizziness. His dizziness has been noted since the removal of earwax, and has predominantly occurred at night as a spinning sensation. He has a past medical history significant for generalized anxiety disorder and hypercholesterolemia. Previous evaluations identified mild thrombocytopenia and leukopenia, although he does not have anemia. Recent laboratory studies have also confirmed normal renal and liver function, normal electrolyte balance, normal blood sugar levels, and optimal thyroid status. Current interventions do not include antihypertensive medication, as the patient has reported low blood pressure readings at home, believed to be influenced by dietary habits and sufficient hydration. His symptoms of dizziness have reportedly improved since the earwax removal and he has not utilized Meclizine for approximately a week, seeing improved symptoms without it. Health Maintenance - Cholesterol levels monitored: LDL at 108 mg/dL, below the target of 130 mg/dL. - Discussion about tetanus and shingles vaccinations. - Plans for tetanus booster administration and shingles vaccine discussed; patient informed about the benefits of the shingles vaccine and its availability. - Blood pressure monitoring and recommendations on maintaining hydration. - Follow-up blood work planned in six months with a reminder to fast prior to testing. 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 - Reports keeping an active lifestyle through work-related physical activities. Review of Systems - ENT: Reports spins predominantly at night, post earwax removal. - Constitutional: Denies nausea or vomiting. - Cardiovascular: Reports lower than usual blood pressure readings at home. Physical Exam - Vitals- Blood pressure approximately 110/112, on the lower side. - Cardiovascular- No notable findings from listening to heart and lungs. - Edema- Denies any leg swelling. Results - Labs: Blood work from September 22 showed normal renal function, normal electrolytes, no anemia, mild thrombocytopenia, mild leukopenia, normal glucose, and normal liver function. Plan The patient's improved dizziness following earwax removal supports less frequent use of Meclizine. Continued monitoring of blood pressure and hydration is suggested to maintain current improvements. Laboratory assessments reveal stable cholesterol levels under current management. Preventive care measures include administering a tetanus booster, discussing the shingles vaccine, and arranging follow-up blood tests in six months. Patient was informed and verbally consented to the use of an ambient scribe for clinic note documentation during this visit. Discussion Notes I discussed with the patient the likelihood of the earwax removal having alleviated his dizziness, making regular use of Meclizine unnecessary unless symptoms recur. We reviewed the laboratory results which confirm satisfactory cholesterol management and normal thyroid function. I elaborated on preventive health practices, especially the importance and timing of vaccinations like tetanus and shingles. The patient agreed to receive a tetanus booster and was informed about the shingles vaccine's efficacy and availability at pharmacies. Follow-up fasting blood tests in six months were scheduled to evaluate ongoing health status. Patient Instructions - Monitor hydration and blood pressure at home. - Use Meclizine as needed for dizziness. - Return for a tetanus booster shot. - Consider shingles vaccination. - Schedule follow-up blood work in six months, ensuring to fast beforehand. - Maintain current cholesterol and blood pressure management practices. Orders: Orders Free T4 (Free Thyroxine) 6 Months R73.02 - Impaired glucose tolerance (oral) Complete Blood Count Auto Diff 6 Months R73.02 - Impaired glucose tolerance (oral) Prostate Specific Antigen Scr 6 Months R73.02 - Impaired glucose tolerance (oral) Comprehensive Met. Panel 6 Months R73.02 - Impaired glucose tolerance (oral) Hemoglobin A1c 6 Months R73.02 - Impaired glucose tolerance (oral) Thyroid Stimulating Hormone 6 Months R73.02 - Impaired glucose tolerance (oral) Vitamin B12 and Folate 6 Months R73.02 - Impaired glucose tolerance (oral) Lipid Panel 6 Months E78.00 - Pure hypercholesterolemia, unspecified, R73.02 - Impaired glucose tolerance (oral) TDaP Immunization Today Z23 - Encounter for immunization Medications: Refilled meclizine 25 mg PO BID PRN 30 tabs 0RF dizziness H81.13 - Benign paroxysmal vertigo, bilateral
== END 2024-11-21 17:03 | disposition home or self-care (01) ==
LOC: HO.HMCH 15:23
PROVIDERS: PCP Internal Medicine; Visit Provider Internal Medicine
DX: Z23 Encounter for immunization (principal); H81.13 Benign paroxysmal vertigo, bilateral

== ENCOUNTER → 2024-11-21 15:22 | Outpatient (BNVA) | payer BC, SELFPAY | PROVIDERS: PCP Internal Medicine; Visit Provider Internal Medicine | DX: Z23 Encounter for immunization (principal); H81.13 Benign paroxysmal vertigo, bilateral | CPT/HCPCS: 90471; 90715 ==